=== PATIENT | female | born 1950 | race American Indian/Alaskan Native ===

== ENCOUNTER 2017-04-06 20:50 | Observation (INO) | payer OTHER ==
[2017-04-06 20:55] VITALS: BMI 28.3
--- NOTE | 2017-04-06 21:11 | PDOC ---
History of Present Illness - General Chief Complaint: Shortness of Breath Stated Complaint: SHORTNESS OF BREATHE Time Seen by Provider: 04/06/17 20:57 - History of Present Illness Initial Comments: 04/06/17 21:25 The patient is a 66 year old female with a history of HLD who presents for evaluation of SOB. The patient as accompanied by her son who assists in providing the history. The patient reports cleaning with bleach and ammonia as well as dusting today and began feeling more SOB over the next few hours prompting her presentation to the ED for evaluation. The son reports that the patient experiences these symptoms every time she does a big clean like today, however her symptoms were worse than normal today. She denies chest pain, fevers, chills, abdominal pain, or changes with urination or bowel movements. Past History - Past Medical History Allergies/Adverse Reactions: Allergies Allergy/AdvReac Type Severity Reaction Status Date / Time No Known Allergies Allergy Verified 04/06/17 20:55 Home Medications: Ambulatory Orders Ezetimibe [Zetia] 10 mg PO DAILY 04/06/17 Simvastatin 20 mg PO DAILY 04/06/17 Hypercholesterolemia: Yes - Suicide/Smoking/Psychosocial Hx Smoking History: Never smoked Review of Systems - Review of Systems Comments:: 04/06/17 21:28 Constitutional: No fevers, chills, fatigue, malaise HEENT: No Rhinorrhea, nasal congestion, visual changes Cardiovascular: No chest pain, syncope, palpitations, lightheadedness Respiratory: SOB. No Cough, Hemoptysis, Gastrointestinal: No Abdominal pain, Nausea, Vomiting, Constipation, Diarrhea, Melena Genitourinary: No Dysuria, Frequency, Urgency, Hesitancy, Hematuria, Flank pain Musculoskeletal: No Myalgia, arthralgia Skin: No rashes, bruising, pallor Neurologic: No Headache, Dizziness, Numbness, Weakness, or Tingling *Physical Exam - Vital Signs Last Vital Signs Temp Pulse Resp BP Pulse Ox 97 F L 114 H 22 184/102 93 L 04/06/17 20:51 04/06/17 20:51 04/06/17 20:51 04/06/17 20:51 04/06/17 20:51 - Physical Exam Comments: 04/06/17 21:29 General Appearance: Nourished. No Apparent Distress HEENT: EOMI, RONNY. No Pharyngeal Erythema, Tonsillar Exudate, Tonsillar Erythema Neck: No Cervical Lymphadenopathy Respiratory/Chest: Lungs Clear, Normal Breath Sounds. Poor air movement. Very mild end expiratory wheezing. No Crackles, Rales, Rhonchi, Cardiovascular: Regular Rhythm, Regular Rate. No Murmur, Gallops, Rubs Gastrointestinal/Abdominal: Normal Bowel Sounds, Soft. No Guarding, Rebound, Tenderness Musculoskeletal: No CVA Tenderness Extremity: Normal Capillary Refill Integumentary: Normal Color, Dry, Warm Neurologic: Fully Oriented, Alert, Normal Mood/Affect, Normal Response, ED Treatment Course - LABORATORY CBC & Chemistry Diagram: 04/06/17 21:30 04/06/17 21:30 Medical Decision Making - Medical Decision Making 04/06/17 21:31 The patient is a 66 year old female with a history of HLD who presents for evaluation of SOB. Differential includes but is not limited to: Reactive airway disease, pneumonia, ACS, infectious, metabolic derangement. Given the patient's history of irritant exposure and poor air movement, it is likely her symptoms are due to reactive airway disease. However, we will obtain a chest plain film to evaluate for pneumonia as well. We will obtain a cbc, cmp, troponin to evaluate for other infectious metabolic etiologies as well as an ekg. We will treat her with duoneb and solumedrol here in the Ed and continue to monitor and reassess. 04/07/17 00:08 cbc, cmp, ekg, troponin are unremarkable. Chest plain film is unremarkable as preliminarily read by ED physician pending official read. The patient reports clinical improvement in her symptoms, however, she continues to desaturate to 90 % on RA and continues to saturate at 97% on 2L. We believe that she requires observation admission given her continued desaturations. We discussed the case with Dr. Siegel who agreed to accept the patient for observation admission. *DC/Admit/Observation/Transfer Diagnosis at time of Disposition: Shortness of breath - Discharge Dispostion Condition at time of disposition: Guarded Admit: Yes
[2017-04-06] MEDS ORDERED: ALBUTEROL SO4 2.5/IPRATROPIUM 0.5 INH SOL 3 ML VIAL.NEB. NEB ONE ×2 (21:14→21:21)
[2017-04-06] MEDS ORDERED: methylPREDNISolone NA SUCC 125 MG/2 ML VIAL IVPUSH ONE (21:20)
[2017-04-06] MEDS ORDERED: methylPREDNISolone NA SUCC 125 MG/2 ML VIAL ONE (21:21)
--- NOTE | 2017-04-06 21:27 | PDOC ---
Attending Attestation - Resident Resident Name: Sanjay Santos - HPI HPI: 04/06/17 21:24 Pt was exposed to dust as others were cleaning her attic, and chemicals including bleach and ammonia as metal inspector were cleaning downstairs in her home. Pt now comes with low [id number] and difficulty breathing. She has decreased breath sounds and she appears to be in distress. Son states that she often gets SOB with annual home cleaning, but he has never seen her this bad. - Physicial Exam PE: 04/06/17 21:25 Decreased air movements in lungs bilaterally; squeaking breath sounds bilaterally R>> left afebrile BP elevated O12sat decreased however 98% on 2L NC No abd pain and no chest pain no flank pain and pt is A+Ox3 neurologically intact. I agree with resident exam - Medical Decision Making 04/07/17 04:00 Pt has a chemical pneumonitis likely due to ammonia and bleach causing toxic chlorine gas and pt has 93%pulsox and resp distess on Room air. She will be admitted to Dr. Conde for observation and consult with pulmonology as needed.
[2017-04-06 21:38] LABS: BASOPHIL 0.5 % (0-2.0); EOSINOPHIL 1.9 % (0-4.5); MCH 27.4 pg (25.7-33.7); MCHC 33.4 g/dl (32.0-36.0); MEAN CELL VOLUME 82.1 fl (80-96); MEAN PLT VOLUME 8.4 fl (7.5-11.1); NEUTROPHILS 73.3 % (42.8-82.8); PLATELET COUNT 246 K/MM3 (134-434); RDW 13.8 % (11.6-15.6); WHITE BLOOD COUNT 9.3 K/mm3 (4.0-10.0)
[2017-04-06 22:06] LABS: ALBUMIN 4.3 g/dl (3.4-5.0); ANION GAP 4 (8-16); BILIRUBIN,TOTAL 0.3 mg/dL (0.2-1.0); CALCIUM 9.9 mg/dL (8.5-10.1); CO2 32 mmol/L (21-32); CREATININE 0.6 mg/dL (0.55-1.02); GLUCOSE,RANDOM 127 mg/dL (74-106); SGOT/AST 15 U/L (15-37); SGPT/ALT 30 U/L (12-78); TOT PROT 9.2 g/dl (6.4-8.2)
[2017-04-06 22:08] LABS: ALK PHOS 76 U/L (45-117); CPK 115 IU/L (26-192); TROPONIN I < 0.02 ng/ml (0.00-0.05)
[2017-04-07] MEDS ORDERED: ACETAMINOPHEN 325 MG TABLET (FP) PO PRN (06:48)
--- NOTE | 2017-04-07 09:47 | PN ---
Progress Note, Physician Chief Complaint: Pt lying in bed.No sob O2 saturation was 97% on Room air Pt feels better D/c home today - Current Medication List Current Medications: Active Medications Acetaminophen (Tylenol -) 650 mg PO Q6H PRN PRN Reason: FEVER OR PAIN Last Admin: 04/07/17 08:50 Dose: 650 mg Atorvastatin Calcium (Lipitor -) 10 mg PO HS JAJA Ezetimibe (Zetia -) 10 mg PO DAILY JAJA Prednisone (Deltasone -) 30 mg PO DAILY JAJA PRN Reason: Taper Stop: 04/14/17 09:59 - Objective Vital Signs: Vital Signs Temperature 97.7 F 04/07/17 08:23 Pulse Rate 83 04/07/17 08:23 Respiratory Rate 19 04/07/17 08:23 Blood Pressure 128/78 04/07/17 08:23 O2 Sat by Pulse Oximetry (%) 96 04/07/17 03:32 Constitutional: Yes: No Distress Eyes: Yes: Conjunctiva Clear HENT: Yes: Atraumatic Neck: Yes: Supple, Trachea Midline Cardiovascular: Yes: Regular Rate and Rhythm Respiratory: Yes: Regular, CTA Bilaterally Gastrointestinal: Yes: WNL Musculoskeletal: Yes: WNL Extremities: Yes: WNL Edema: No Peripheral Pulses WNL: Yes Neurological: Yes: WNL, Alert, Oriented ...Motor Strength: WNL Psychiatric: Yes: WNL, Alert Labs: Laboratory Results - last 24 hr 04/06/17 04/06/17 21:30 21:30 WBC 9.3 RBC 5.58 H Hgb 15.3 Hct 45.8 H MCV 82.1 MCH 27.4 MCHC 33.4 RDW 13.8 Plt Count 246 MPV 8.4 Neutrophils % 73.3 Lymphocytes % 19.3 Monocytes % 5.0 Eosinophils % 1.9 Basophils % 0.5 Sodium 139 Potassium 4.3 Chloride 103 Carbon Dioxide 32 Anion Gap 4 L BUN 9 Creatinine 0.6 Creat Clearance w eGFR > 60 Random Glucose 127 H Calcium 9.9 Total Bilirubin 0.3 AST 15 ALT 30 Alkaline Phosphatase 76 Creatine Kinase 115 Troponin I < 0.02 Total Protein 9.2 H Albumin 4.3 - ....Imaging Chest X-ray: Report Reviewed Assessment/Plan SOB s/p exposure to clening solutions,bleach and Dust Hypercholestrolemia PLAN D/c home ,continue prednisone tapering dose for $ more days ventolin HFA Continue home meds F/u with Pmd in 1 wk
--- NOTE | 2017-04-07 09:58 | DS ---
Physical Examination Vital Signs: Vital Signs Temperature 97.7 F 04/07/17 08:23 Pulse Rate 83 04/07/17 08:23 Respiratory Rate 19 04/07/17 08:23 Blood Pressure 128/78 04/07/17 08:23 O2 Sat by Pulse Oximetry (%) 96 04/07/17 03:32 Discharge Summary Reason For Visit: SHORTNESS OF BREATHE Current Active Problems Shortness of breath (Acute) Hypercholestrolemia Hospital Course: Pt with h/o hypercholestrolemia admitted with SOB after exposure to cleaning materials bleach and dust Saturation was 92% , Labs ,ekg and Xray chest were NL Pt was treated with Oxygen,Duoneb and Solumedrol Pt improved ,Saturation Was NL Pt kept for Observation Pt was stable on the floor D/c home on Ventolin,Po prednisone tapering dose in a stable condition Condition: Good - Instructions Disposition: HOME - Home Medications Comprehensive Discharge Medication List: Ambulatory Orders Ezetimibe [Zetia] 10 mg PO DAILY 04/06/17 Simvastatin 20 mg PO DAILY 04/06/17 Albuterol Sulfate Inhaler - [Ventolin Hfa Inhaler -] 2 inh PO Q6H #1 inh Prednisone [Deltasone -] 30 mg PO DAILY #2 tablet 04/07/17
[2017-04-07] MEDS ORDERED: EZETIMIBE 10 MG TABLET (FP) PO SCH (10:00)
[2017-04-07] MEDS ORDERED: predniSONE 10 MG TABLET (UD) PO SCH (10:00)
[2017-04-07 10:08] LABS: URINE APPEARANCE SLCLOUDY; URINE BILIRUBIN NEGATIVE (NEGATIVE); URINE BLOOD NEGATIVE (NEGATIVE); URINE COLOR YELLOW; URINE GLUCOSE (UA) 2+ (NEGATIVE); URINE KETONE NEGATIVE (NEGATIVE); URINE NITRITE NEGATIVE (NEGATIVE); URINE UROBILINOGEN NEGATIVE mg/dL (0.2-1.0)
[2017-04-07 10:12] LABS: URINE PROTEIN 1+ (NEGATIVE)
[2017-04-07 10:13] LABS: URINE MUCUS RARE; URINE RBC 1 /hpf (0-3); URINE WBC <1 /hpf (3-5)
--- NOTE | 2017-04-07 10:52 | EKG ---
Test Reason : Blood Pressure : / mmHG Vent. Rate : 100 BPM Atrial Rate : 100 BPM P-R Int : 154 ms QRS Dur : 068 ms QT Int : 368 ms P-R-T Axes : 074 -12 032 degrees QTc Int : 474 ms NORMAL SINUS RHYTHM LOW VOLTAGE QRS POOR R WAVE PROGRESSION ABNORMAL ECG NO PREVIOUS ECGS AVAILABLE BASELINE ARTIFACT Confirmed by RICHARD PARRISH, TESFAYE ([id number]) on 04/07/2017 10:51:54 AM Referred By: Confirmed By:TESFAYE RAMOS MD
--- NOTE | 2017-04-07 12:32 | HP ---
DATE OF ADMISSION: 04/07/2017 Patient is a 66-year-old female with history of hyperlipidemia who came to the emergency for evaluation of shortness of breath. As per the patient, she was cleaning the house with bleach and ammonia as well as the stink and began feeling more shortness of breath over the next few hours, so came to the emergency room for evaluation. No chest pain, no palpitations, no fever. As per her son, the patient experiences these symptoms every time when she cleans the house; however, the symptoms were worse than normal today; that is the reason she came for evaluation. No known drug allergies. MEDICATIONS: The patient is on Zetia and simvastatin. PERSONAL HISTORY: Nothing significant. Nonsmoker. No history of alcohol, no drugs. REVIEW OF SYSTEMS: Constitutional: No fever, no chills, no fatigue. Head/Neck: No rhinorrhea, nasal congestion. No visual changes. Cardiovascular: No chest pain, no syncope, no palpitations, no lightheadedness. Respiratory: Shortness of breath. No cough, no hemoptysis. Gastrointestinal: Nothing significant. Genitourinary: Nothing significant. Musculoskeletal: Nothing significant. Neurologic: Nothing significant. Mild headache complaints. PHYSICAL EXAMINATION: Vital Signs: In the emergency room, temperature 97, pulse rate 114, respirations 22, blood pressure 194/102, pulse oximetry 93. Head/Neck: Normal. Neck supple. No JVD. Chest: Normal breath sounds, poor air entry with mild respiratory wheezing. No crackles, no rales, no rhonchi. Cardiovascular: First and 2nd sounds are normal. normal. Musculoskeletal: No CVA tenderness. Extremities: Normal. Neurologic: No apparent motor or sensory deficits. Reflexes normal. LABORATORIES: CBC normal. CMP normal. Chest x-ray: No infiltrate. Cardiac enzymes negative. EKG was normal. Patient was given Solu-Medrol and DuoNeb in the emergency room. Before that, the oxygen saturation was 90% on room air and, on 2 L of oxygen, it went up to 97%. Patient admitted to the floor with admitting diagnoses of shortness of breath, status post exposure to bleach; desaturation. PLAN: Bronchodilators, steroidal to be continued. Will monitor the saturation and breathing. Patient was stable on the floor. REYNOLD SUAREZ M.D. [id number]
[2017-04-07 14:59] VITALS: BP 153/69; PULSE 96; TEMP 97.9
[2017-04-07 17:23] LABS: URINE LEUK ESTERASE Negative (NEGATIVE)
[2017-04-07] MEDS ORDERED: ATORVASTATIN CA 10 MG TABLET (FP) PO SCH (22:00)
== END 2017-04-07 16:26 | disposition home or self-care (01) ==
LOC: JER 20:50 → JERBED 04-07 00:12 → J5S 04-07 03:00
PROVIDERS: ADMIT Family Medicine; ATTEND Family Medicine
PROC: 3E033NZ Introduction of Analgesics, Hypnotics, Sedatives into Peripheral Vein, Percutaneous Approach (ICD-10-PCS; principal; 2017-04-07)
PROC: 3E0F7GC Introduction of Other Therapeutic Substance into Respiratory Tract, Via Natural or Artificial Opening (ICD-10-PCS; 2017-04-07)
DX: R06.02 Shortness of breath (principal); E78.5 Hyperlipidemia, unspecified; Z77.098 Contact with and (suspected) exposure to other hazardous, chiefly nonmedicinal, chemicals
CPT/HCPCS: 36415; 71020-TC; 80053; 81003; 81015; 82550; 84484; 85025; 87086; 93005; 93010; 94640; 96374; 99282-25; G0378

== ENCOUNTER 2020-11-24 03:43 | Inpatient (IN) | payer OTHER ==
[2020-11-24 05:04] LABS: BASO % 0.5 % (0-2.0); EOS % 2.4 % (0-4.5); HEMATOCRIT 38.1 % (32.4-45.2); HEMOGLOBIN 12.9 GM/dL (10.7-15.3); LYMPH % 7.8 % (8-40); MCH 28.4 pg (25.7-33.7); MCHC 33.9 g/dl (32.0-36.0); MEAN CELL VOLUME 83.6 fl (80-96); MEAN PLT VOLUME 7.9 fl (7.5-11.1); MONO % 9.1 % (3.8-10.2); NEUT % 80.2 % (42.8-82.8); PLATELET COUNT 356 K/MM3 (134-434); RBC 4.56 M/mm3 (3.60-5.2); RDW 13.4 % (11.6-15.6)
[2020-11-24] MEDS ORDERED: SODIUM CHLORIDE 0.9% 500 ML INFUS.BAG IV ONE ×2 (05:06→09:40)
[2020-11-24] MEDS ORDERED: ACETAMINOPHEN 1000 MG/100 ML VIAL (NON FORMULARY) IVPB ONE (05:06)
[2020-11-24 05:10] LABS: VENOUS BASE EXCESS -0.3 mmol/L (-2-2); VENOUS O2 SATURATION 72.4 % (70-80); VENOUS PCO2 40.1 mmHg (38-52); VENOUS PH 7.401 (7.310-7.410)
[2020-11-24 05:11] LABS: INR 1.16 (0.83-1.09); PROTHROMBIN TIME (PATIENT) 14.2 SEC (9.7-13.0)
[2020-11-24 05:13] LABS: ACTIVATED PTT 35.4 SECONDS (25.2-36.5)
[2020-11-24] MEDS ORDERED: ACETAMINOPHEN INJECTION 100 ML IVPB ONE (05:17)
[2020-11-24 05:22] LABS: CHLORIDE 101 mmol/L (98-107); SODIUM 134 mmol/L (136-145)
[2020-11-24 05:24] LABS: ANION GAP 7 MMOL/L (8-16); BLOOD UREA NITROGEN 14.5 mg/dL (7-18); CALCIUM 9.1 mg/dL (8.5-10.1); CO2 26 mmol/L (21-32); GLUCOSE,RANDOM 174 mg/dL (74-106)
[2020-11-24 05:25] LABS: ALBUMIN 3.2 g/dl (3.4-5.0)
[2020-11-24 05:27] LABS: BILIRUBIN,DIRECT 0.3 mg/dL (0.0-0.2); CREATININE 0.6 mg/dL (0.55-1.3); SGOT/AST 62 U/L (15-37); SGPT/ALT 150 U/L (13-61)
[2020-11-24 05:29] LABS: BILIRUBIN,TOTAL 0.6 mg/dL (0.2-1)
[2020-11-24 05:30] LABS: ALK PHOS 185 U/L (45-117)
[2020-11-24 05:31] LABS: LDH 160 U/L (84-246)
[2020-11-24 07:43] LABS: N-TERMINAL BNP 69.2 pg/ml (5-125)
[2020-11-24] MEDS ORDERED: PIPERACILLIN/TAZOB 4.5 GM 4.5 GM in DEXTROSE 5%-WATER 100 ML IVPB ONE (07:47)
[2020-11-24 08:07] LABS: PH,URINE 6.5 (5.0-8.0); URINE APPEARANCE CLEAR; URINE BILIRUBIN NEGATIVE (NEGATIVE); URINE COLOR YELLOW; URINE GLUCOSE (UA) NEGATIVE (NEGATIVE); URINE KETONE NEGATIVE (NEGATIVE); URINE LEUK ESTERASE NEGATIVE (NEGATIVE); URINE NITRITE NEGATIVE (NEGATIVE); URINE PROTEIN NEGATIVE (NEGATIVE); URINE UROBILINOGEN 0.2 mg/dL (0.2-1.0)
[2020-11-24] MEDS ORDERED: PIPERACILLIN/TAZOB 4.5 GM 4.5 GM/100 ML BAG IVPB ONE (08:08)
[2020-11-24] MEDS ORDERED: IBUPROFEN 600 MG TABLET (FP) PO PRN (09:32)
[2020-11-24] MEDS ORDERED: SODIUM CHLORIDE 1,000 ML IV SCH (09:45)
[2020-11-24] MEDS: LIDOCAINE 5% TOPICAL PATCH TP SCH (11:27)
[2020-11-24] MEDS: ENOXAPARIN NA (PORCINE) 40 MG/0.4 ML DISP.SYRIN SQ SCH (11:34)
[2020-11-24] MEDS: ACETAMINOPHEN 1000 MG/100 ML VIAL (NON FORMULARY) IVPB PRN ×2 (13:14→20:25)
[2020-11-24] MEDS: AZITHROMYCIN IVPB 250 MG in DEXTROSE 5%-WATER - 250 ML IVPB SCH (14:02)
[2020-11-24] MEDS ORDERED: cefTRIAXone SODIUM 1 GM VIAL ONE (14:38)
[2020-11-24] MEDS ORDERED: DEXTROSE 5%-WATER - 50 ML IVPB ONE (14:38)
[2020-11-24] MEDS: ALBUTEROL SO4 HFA INHALER IH PRN ×2 (14:51→18:22)
[2020-11-24 15:17] VITALS: BMI 27.3
[2020-11-24] MEDS: CEFTRIAXONE 1 GM in DEXTROSE 5%-WATER - 50 ML IVPB SCH (17:01)
[2020-11-24] MEDS: LIDOCAINE PATCH REMOVAL MC SCH (21:17)
[2020-11-25] MEDS: ALBUTEROL SO4 HFA INHALER IH PRN ×2 (01:15→06:01)
[2020-11-25] MEDS: ACETAMINOPHEN 1000 MG/100 ML VIAL (NON FORMULARY) IVPB PRN ×2 (02:17→08:40)
[2020-11-25 08:35] LABS: HEMATOCRIT 37.6 % (32.4-45.2); HEMOGLOBIN 12.4 GM/dL (10.7-15.3); MCH 27.6 pg (25.7-33.7); MCHC 32.9 g/dl (32.0-36.0); MEAN PLT VOLUME 7.7 fl (7.5-11.1); PLATELET COUNT 359 K/MM3 (134-434); RBC 4.48 M/mm3 (3.60-5.2); RDW 13.6 % (11.6-15.6); WHITE BLOOD COUNT 17.1 K/mm3 (4.0-10.0)
[2020-11-25 08:59] LABS: CALCIUM 9.2 mg/dL (8.5-10.1)
[2020-11-25 09:00] LABS: MAGNESIUM 1.9 mg/dL (1.8-2.4)
[2020-11-25 09:03] LABS: CREATININE 0.5 mg/dL (0.55-1.3); PHOSPHOROUS 3.9 mg/dL (2.5-4.9)
[2020-11-25 09:04] LABS: BILIRUBIN,TOTAL 1.3 mg/dL (0.2-1); TOT PROT 6.7 g/dl (6.4-8.2)
[2020-11-25 09:09] LABS: ALBUMIN 2.4 g/dl (3.4-5.0)
[2020-11-25] MEDS ORDERED: PT OWN MED DRAWER 7, Y5N ONE (10:45)
[2020-11-25] MEDS ORDERED: DEXTROSE 5%-WATER - 50 ML IVPB ONE (10:46)
[2020-11-25] MEDS ORDERED: cefTRIAXone SODIUM 1 GM VIAL ONE (10:46)
[2020-11-25] MEDS: ENOXAPARIN NA (PORCINE) 40 MG/0.4 ML DISP.SYRIN SQ SCH (11:23)
[2020-11-25] MEDS: CEFTRIAXONE 1 GM in DEXTROSE 5%-WATER - 50 ML IVPB SCH (11:24)
[2020-11-25] MEDS ORDERED: SODIUM CHLORIDE 1,000 ML IV SCH (11:30)
[2020-11-25] MEDS ORDERED: PANTOPRAZOLE SODIUM 40 MG in SODIUM CHLORIDE 100 ML IVPB SCH (11:30)
[2020-11-25] MEDS: AZITHROMYCIN IVPB 250 MG in DEXTROSE 5%-WATER - 250 ML IVPB SCH (11:35)
[2020-11-25] MEDS: ONDANSETRON 4 MG/2 ML VIAL IVPUSH PRN ×2 (13:05→18:40)
[2020-11-25] MEDS: PANTOPRAZOLE SODIUM 40 MG VIAL IVPUSH SCH (13:09)
[2020-11-25] MEDS: LIDOCAINE 5% TOPICAL PATCH TP SCH (17:40)
[2020-11-25] MEDS: traMADol HCL 50 MG TABLET PO PRN (20:02)
[2020-11-25] MEDS: LIDOCAINE PATCH REMOVAL MC SCH (21:39)
[2020-11-26] MEDS: traMADol HCL 50 MG TABLET PO PRN ×4 (02:12→21:22)
[2020-11-26] MEDS ORDERED: DEXTROSE 5%-WATER 100 ML IVPB ONE (08:46)
[2020-11-26] MEDS: LIDOCAINE 5% TOPICAL PATCH TP SCH (09:14)
[2020-11-26] MEDS: PANTOPRAZOLE SODIUM 40 MG VIAL IVPUSH SCH (09:14)
[2020-11-26] MEDS: ENOXAPARIN NA (PORCINE) 40 MG/0.4 ML DISP.SYRIN SQ SCH (09:17)
[2020-11-26 09:57] LABS: BASO % 0.3 % (0-2.0); EOS % 0.7 % (0-4.5); HEMATOCRIT 33.5 % (32.4-45.2); HEMOGLOBIN 10.8 GM/dL (10.7-15.3); LYMPH % 5.1 % (8-40); MCH 27.5 pg (25.7-33.7); MCHC 32.3 g/dl (32.0-36.0); MEAN PLT VOLUME 8.3 fl (7.5-11.1); MONO % 5.6 % (3.8-10.2); NEUT % 88.3 % (42.8-82.8); PLATELET COUNT 454 K/MM3 (134-434); RBC 3.94 M/mm3 (3.60-5.2); RDW 13.3 % (11.6-15.6)
[2020-11-26] MEDS ORDERED: CEFTRIAXONE 2 GM in DEXTROSE 5%-WATER 100 ML IVPB SCH (10:00)
[2020-11-26] MEDS: ALBUTEROL SO4 HFA INHALER IH PRN ×3 (10:00→21:00)
[2020-11-26 11:00] LABS: WHITE BLOOD COUNT 31.7 K/mm3 (4.0-10.0)
[2020-11-26 11:25] LABS: BASO % 0.3 % (0-2.0); EOS % 0.6 % (0-4.5); HEMATOCRIT 36.2 % (32.4-45.2); LYMPH % 6.2 % (8-40); MCH 27.7 pg (25.7-33.7); MCHC 33.1 g/dl (32.0-36.0); MEAN CELL VOLUME 83.7 fl (80-96); MEAN PLT VOLUME 7.5 fl (7.5-11.1); MONO % 6.9 % (3.8-10.2); PLATELET COUNT 379 K/MM3 (134-434); RBC 4.32 M/mm3 (3.60-5.2); RDW 13.8 % (11.6-15.6); WHITE BLOOD COUNT 21.2 K/mm3 (4.0-10.0)
[2020-11-26 11:45] LABS: ALBUMIN 2.3 g/dl (3.4-5.0)
[2020-11-26 11:46] LABS: MAGNESIUM 2.1 mg/dL (1.8-2.4)
[2020-11-26 11:49] LABS: CREATININE 0.6 mg/dL (0.55-1.3)
[2020-11-26 11:50] LABS: BILIRUBIN,TOTAL 0.4 mg/dL (0.2-1); TOT PROT 6.8 g/dl (6.4-8.2)
[2020-11-26 12:46] LABS: ANISOCYTOSIS 0; MACROCYTOSIS 0; PLATELET ESTIMATE NORMAL
[2020-11-26 13:18] LABS: ANISOCYTOSIS 0; MACROCYTOSIS 0; PLATELET ESTIMATE NORMAL
[2020-11-26 14:08] LABS: HEP B CORE AB, TOT Negative (Negative)
[2020-11-26] MEDS: VANCOMYCIN 1 GRAM (PRE-DOCKED) 1,000 MG/250 ML BAG IVPB SCH (15:40)
[2020-11-26] MEDS ORDERED: PIPERACILLIN/TAZOBACTAM 3.375 GM VIAL IVPB ONE (16:42)
[2020-11-26] MEDS ORDERED: DEXTROSE 5%-WATER - 50 ML IVPB ONE (16:42)
[2020-11-26] MEDS: PIPERACILLIN/TAZOB 3.375 GM 3.375 GM in DEXTROSE 5%-WATER - 50 ML IVPB SCH (18:13)
[2020-11-26] MEDS: LIDOCAINE PATCH REMOVAL MC SCH (21:22)
[2020-11-27] MEDS: ALBUTEROL SO4 HFA INHALER IH PRN ×2 (00:57→08:12)
[2020-11-27] MEDS ORDERED: DEXTROSE 5%-WATER - 50 ML IVPB ONE ×3 (01:10→17:01)
[2020-11-27] MEDS ORDERED: PIPERACILLIN/TAZOBACTAM 3.375 GM VIAL IVPB ONE ×3 (01:10→17:01)
[2020-11-27] MEDS: PIPERACILLIN/TAZOB 3.375 GM 3.375 GM in DEXTROSE 5%-WATER - 50 ML IVPB SCH ×3 (02:02→18:02)
[2020-11-27] MEDS: VANCOMYCIN 1 GRAM (PRE-DOCKED) 1,000 MG/250 ML BAG IVPB SCH ×2 (03:09→15:41)
[2020-11-27] MEDS: traMADol HCL 50 MG TABLET PO PRN ×4 (03:09→21:53)
[2020-11-27 09:09] LABS: BASO % 0.3 % (0-2.0); EOS % 0.9 % (0-4.5); HEMATOCRIT 35.6 % (32.4-45.2); HEMOGLOBIN 11.7 GM/dL (10.7-15.3); MCH 27.3 pg (25.7-33.7); MCHC 32.9 g/dl (32.0-36.0); MEAN CELL VOLUME 83.2 fl (80-96); MEAN PLT VOLUME 7.1 fl (7.5-11.1); MONO % 8.6 % (3.8-10.2); NEUT % 78.2 % (42.8-82.8); PLATELET COUNT 467 K/MM3 (134-434); RBC 4.28 M/mm3 (3.60-5.2); RDW 13.8 % (11.6-15.6); WHITE BLOOD COUNT 16.1 K/mm3 (4.0-10.0)
[2020-11-27 09:28] LABS: ALBUMIN 2.2 g/dl (3.4-5.0); CALCIUM 9.1 mg/dL (8.5-10.1)
[2020-11-27 09:29] LABS: BLOOD UREA NITROGEN 11.4 mg/dL (7-18); MAGNESIUM 2.1 mg/dL (1.8-2.4)
[2020-11-27 09:30] LABS: INR 1.18 (0.83-1.09); PROTHROMBIN TIME (PATIENT) 14.4 SEC (9.7-13.0)
[2020-11-27 09:32] LABS: CREATININE 0.5 mg/dL (0.55-1.3)
[2020-11-27] MEDS: PANTOPRAZOLE SODIUM 40 MG VIAL IVPUSH SCH (09:32)
[2020-11-27 09:33] LABS: BILIRUBIN,TOTAL 0.6 mg/dL (0.2-1); TOT PROT 6.8 g/dl (6.4-8.2)
[2020-11-27] MEDS: LIDOCAINE 5% TOPICAL PATCH TP SCH (09:33)
[2020-11-27] MEDS ORDERED: METOPROLOL TARTRATE 5 MG/5 ML VIAL IVPUSH PRN (11:22)
[2020-11-27] MEDS ORDERED: ALBUTEROL SO4 HFA INHALER IH PRN (12:42)
[2020-11-27] MEDS ORDERED: ONDANSETRON 4 MG/2 ML VIAL IVPUSH PRN (12:42)
[2020-11-27] MEDS: LIDOCAINE PATCH REMOVAL MC SCH ×2 (21:12)
[2020-11-28] MEDS ORDERED: PIPERACILLIN/TAZOBACTAM 3.375 GM VIAL IVPB ONE ×3 (02:17→17:48)
[2020-11-28] MEDS ORDERED: DEXTROSE 5%-WATER - 50 ML IVPB ONE ×3 (02:17→17:48)
[2020-11-28] MEDS: PIPERACILLIN/TAZOB 3.375 GM 3.375 GM in DEXTROSE 5%-WATER - 50 ML IVPB SCH ×4 (02:29→17:57)
[2020-11-28] MEDS: VANCOMYCIN 1 GRAM (PRE-DOCKED) 1,000 MG/250 ML BAG IVPB SCH ×2 (02:39→15:24)
[2020-11-28] MEDS: traMADol HCL 50 MG TABLET PO PRN ×2 (06:17→19:37)
[2020-11-28 08:30] LABS: BASO % 0.4 % (0-2.0); EOS % 1.8 % (0-4.5); HEMATOCRIT 33.8 % (32.4-45.2); HEMOGLOBIN 10.9 GM/dL (10.7-15.3); LYMPH % 14.5 % (8-40); MCHC 32.3 g/dl (32.0-36.0); MEAN CELL VOLUME 83.6 fl (80-96); MEAN PLT VOLUME 7.2 fl (7.5-11.1); MONO % 10.3 % (3.8-10.2); PLATELET COUNT 425 K/MM3 (134-434); RBC 4.04 M/mm3 (3.60-5.2); RDW 13.2 % (11.6-15.6); WHITE BLOOD COUNT 11.3 K/mm3 (4.0-10.0)
[2020-11-28 08:31] LABS: INR 1.3 (0.83-1.09); PROTHROMBIN TIME (PATIENT) 15.6 SEC (9.7-13.0)
[2020-11-28 08:51] LABS: CALCIUM 8.7 mg/dL (8.5-10.1)
[2020-11-28 08:52] LABS: ALBUMIN 1.9 g/dl (3.4-5.0); BLOOD UREA NITROGEN 8.4 mg/dL (7-18); MAGNESIUM 2.2 mg/dL (1.8-2.4)
[2020-11-28 08:55] LABS: CREATININE 0.5 mg/dL (0.55-1.3)
[2020-11-28 08:56] LABS: BILIRUBIN,TOTAL 0.5 mg/dL (0.2-1); TOT PROT 6.1 g/dl (6.4-8.2)
[2020-11-28] MEDS: LIDOCAINE 5% TOPICAL PATCH TP SCH (10:37)
[2020-11-28] MEDS: PANTOPRAZOLE SODIUM 40 MG VIAL IVPUSH SCH ×2 (10:37→11:03)
[2020-11-28] MEDS ORDERED: ENOXAPARIN NA (PORCINE) 80 MG/0.8 ML DISP.SYRIN SQ SCH (17:15)
[2020-11-28] MEDS: ENOXAPARIN NA (PORCINE) 80 MG/0.8 ML DISP.SYRIN SQ SCH (21:45)
[2020-11-28] MEDS: LIDOCAINE PATCH REMOVAL MC SCH ×2 (21:48)
[2020-11-29] MEDS ORDERED: PIPERACILLIN/TAZOBACTAM 3.375 GM VIAL IVPB ONE ×3 (01:27→16:28)
[2020-11-29] MEDS ORDERED: DEXTROSE 5%-WATER - 50 ML IVPB ONE ×3 (01:28→16:28)
[2020-11-29] MEDS: PIPERACILLIN/TAZOB 3.375 GM 3.375 GM in DEXTROSE 5%-WATER - 50 ML IVPB SCH ×3 (01:42→17:14)
[2020-11-29] MEDS: traMADol HCL 50 MG TABLET PO PRN ×3 (02:16→22:15)
[2020-11-29] MEDS: VANCOMYCIN 1 GRAM (PRE-DOCKED) 1,000 MG/250 ML BAG IVPB SCH ×2 (02:21→14:17)
[2020-11-29 09:17] LABS: BF WBC & OTHER NUCLEATED CELLS 2038 /mm3
[2020-11-29] MEDS: ENOXAPARIN NA (PORCINE) 80 MG/0.8 ML DISP.SYRIN SQ SCH ×2 (09:45→22:14)
[2020-11-29] MEDS: LIDOCAINE 5% TOPICAL PATCH TP SCH (09:45)
[2020-11-29] MEDS: PANTOPRAZOLE SODIUM 40 MG VIAL IVPUSH SCH (09:46)
[2020-11-29 10:13] LABS: BODY FLUID MACROPHAGES 6 %; BODY FLUID MONOCYTE 8 %
[2020-11-29 11:23] LABS: BASO % 0.5 % (0-2.0); EOS % 1.5 % (0-4.5); HEMATOCRIT 36.4 % (32.4-45.2); HEMOGLOBIN 11.8 GM/dL (10.7-15.3); LYMPH % 13.1 % (8-40); MCHC 32.5 g/dl (32.0-36.0); MEAN CELL VOLUME 83.3 fl (80-96); MEAN PLT VOLUME 7.3 fl (7.5-11.1); MONO % 8.3 % (3.8-10.2); NEUT % 76.6 % (42.8-82.8); PLATELET COUNT 464 10^3/uL (134-434); RBC 4.37 M/mm3 (3.60-5.2); RDW 13.7 % (11.6-15.6); WHITE BLOOD COUNT 9.3 K/mm3 (4.0-10.0)
[2020-11-29 11:43] LABS: ALBUMIN 2.1 g/dl (3.4-5.0); MAGNESIUM 2.4 mg/dL (1.8-2.4)
[2020-11-29 11:46] LABS: CREATININE 0.6 mg/dL (0.55-1.3)
[2020-11-29 11:47] LABS: BILIRUBIN,TOTAL 0.5 mg/dL (0.2-1)
[2020-11-29 11:48] LABS: TOT PROT 6.9 g/dl (6.4-8.2)
[2020-11-29 12:38] LABS: ANISOCYTOSIS 0; HELMET CELLS 0; HOWELL-JOLLY BODIES 0; MACROCYTOSIS 0; OVALOCYTE 0; PLATELET ESTIMATE NORMAL; ROULEAU 0; SICKELED CELLS 0; TARGET CELLS 0; TEAR DROP CELLS 0; TOXIC GRANULATION 0
[2020-11-29] MEDS: LIDOCAINE PATCH REMOVAL MC SCH ×2 (22:14→22:15)
[2020-11-30] MEDS ORDERED: PIPERACILLIN/TAZOBACTAM 3.375 GM VIAL IVPB ONE ×3 (03:19→16:56)
[2020-11-30] MEDS ORDERED: DEXTROSE 5%-WATER - 50 ML IVPB ONE ×3 (03:21→16:56)
[2020-11-30] MEDS: VANCOMYCIN 1 GRAM (PRE-DOCKED) 1,000 MG/250 ML BAG IVPB SCH ×2 (03:36→14:53)
[2020-11-30] MEDS: PIPERACILLIN/TAZOB 3.375 GM 3.375 GM in DEXTROSE 5%-WATER - 50 ML IVPB SCH ×3 (03:53→18:34)
[2020-11-30 07:23] LABS: BASO % 0.5 % (0-2.0); EOS % 2.5 % (0-4.5); HEMATOCRIT 32.8 % (32.4-45.2); LYMPH % 19.7 % (8-40); MCH 27.9 pg (25.7-33.7); MCHC 33.6 g/dl (32.0-36.0); MEAN PLT VOLUME 6.9 fl (7.5-11.1); MONO % 10.3 % (3.8-10.2); PLATELET COUNT 440 10^3/uL (134-434); RBC 3.96 M/mm3 (3.60-5.2); RDW 13.2 % (11.6-15.6); WHITE BLOOD COUNT 8.3 K/mm3 (4.0-10.0)
[2020-11-30 07:52] LABS: ALBUMIN 1.9 g/dl (3.4-5.0); CALCIUM 8.7 mg/dL (8.5-10.1); MAGNESIUM 2.3 mg/dL (1.8-2.4)
[2020-11-30 07:53] LABS: BLOOD UREA NITROGEN 8.8 mg/dL (7-18)
[2020-11-30 07:56] LABS: CREATININE 0.5 mg/dL (0.55-1.3)
[2020-11-30 07:57] LABS: BILIRUBIN,TOTAL 0.5 mg/dL (0.2-1); TOT PROT 6.4 g/dl (6.4-8.2)
[2020-11-30 09:26] LABS: ANISOCYTOSIS 0; HELMET CELLS 0; HOWELL-JOLLY BODIES 0; MACROCYTOSIS 0; OVALOCYTE 0; PLATELET ESTIMATE NORMAL; ROULEAU 0; SICKELED CELLS 0; TARGET CELLS 0; TEAR DROP CELLS 0; TOXIC GRANULATION 0
[2020-11-30] MEDS: LIDOCAINE 5% TOPICAL PATCH TP SCH (09:35)
[2020-11-30] MEDS: ENOXAPARIN NA (PORCINE) 80 MG/0.8 ML DISP.SYRIN SQ SCH ×2 (09:36→22:45)
[2020-11-30] MEDS: PANTOPRAZOLE SODIUM 40 MG VIAL IVPUSH SCH (09:36)
[2020-11-30] MEDS ORDERED: SENNOSIDES 8.6MG TABLET (FP) PO PRN (12:25)
[2020-11-30] MEDS: POLYETHYLENE GLYCOL 3350 119 GM BTL PO SCH ×2 (14:48→22:47)
[2020-11-30] MEDS: ALTEPLASE 2 MG VIAL IVPB SCH (15:30)
[2020-11-30 17:10] LABS: BODY FLUID ALBUMIN 2.6 g/dL (Not Estab.)
[2020-11-30] MEDS: traMADol HCL 50 MG TABLET PO PRN (18:39)
[2020-11-30] MEDS: DOCUSATE SODIUM 100 MG CAPSULE (FP) PO SCH (22:47)
[2020-11-30] MEDS: LIDOCAINE PATCH REMOVAL MC SCH ×2 (22:50)
[2020-12-01] MEDS ORDERED: PIPERACILLIN/TAZOBACTAM 3.375 GM VIAL IVPB ONE ×3 (01:00→17:30)
[2020-12-01] MEDS: PIPERACILLIN/TAZOB 3.375 GM 3.375 GM in DEXTROSE 5%-WATER - 50 ML IVPB SCH ×3 (01:39→17:53)
[2020-12-01] MEDS: VANCOMYCIN 1 GRAM (PRE-DOCKED) 1,000 MG/250 ML BAG IVPB SCH ×2 (02:10→15:30)
[2020-12-01 07:08] LABS: BASO % 0.5 % (0-2.0); EOS % 2.2 % (0-4.5); HEMOGLOBIN 11.7 GM/dL (10.7-15.3); LYMPH % 17.8 % (8-40); MCH 27.7 pg (25.7-33.7); MCHC 33.4 g/dl (32.0-36.0); MEAN CELL VOLUME 82.9 fl (80-96); MONO % 10.4 % (3.8-10.2); NEUT % 69.1 % (42.8-82.8); PLATELET COUNT 516 10^3/uL (134-434); RBC 4.22 M/mm3 (3.60-5.2); RDW 13.2 % (11.6-15.6); WHITE BLOOD COUNT 8.7 K/mm3 (4.0-10.0)
[2020-12-01 07:36] LABS: CALCIUM 8.9 mg/dL (8.5-10.1)
[2020-12-01 07:37] LABS: MAGNESIUM 2.3 mg/dL (1.8-2.4)
[2020-12-01 07:40] LABS: CREATININE 0.5 mg/dL (0.55-1.3)
[2020-12-01 07:41] LABS: BILIRUBIN,TOTAL 0.7 mg/dL (0.2-1); TOT PROT 6.8 g/dl (6.4-8.2)
[2020-12-01] MEDS ORDERED: DEXTROSE 5%-WATER - 50 ML IVPB ONE (09:12)
[2020-12-01] MEDS: traMADol HCL 50 MG TABLET PO PRN ×3 (10:17→21:40)
[2020-12-01] MEDS: LIDOCAINE 5% TOPICAL PATCH TP SCH (10:20)
[2020-12-01] MEDS: PANTOPRAZOLE SODIUM 40 MG VIAL IVPUSH SCH (10:20)
[2020-12-01] MEDS: ENOXAPARIN NA (PORCINE) 80 MG/0.8 ML DISP.SYRIN SQ SCH ×2 (10:21→21:29)
[2020-12-01] MEDS: POLYETHYLENE GLYCOL 3350 119 GM BTL PO SCH ×2 (10:22→21:30)
[2020-12-01] MEDS: ALTEPLASE 2 MG VIAL IVPB SCH (12:00)
[2020-12-01] MEDS: DOCUSATE SODIUM 100 MG CAPSULE (FP) PO SCH ×2 (21:29→21:37)
[2020-12-01] MEDS: LIDOCAINE PATCH REMOVAL MC SCH (21:30)
[2020-12-02] MEDS ORDERED: DEXTROSE 5%-WATER - 50 ML IVPB ONE ×3 (00:34→17:06)
[2020-12-02] MEDS ORDERED: PIPERACILLIN/TAZOBACTAM 3.375 GM VIAL IVPB ONE ×3 (00:34→17:06)
[2020-12-02] MEDS: PIPERACILLIN/TAZOB 3.375 GM 3.375 GM in DEXTROSE 5%-WATER - 50 ML IVPB SCH ×3 (01:30→17:52)
[2020-12-02] MEDS: VANCOMYCIN 1 GRAM (PRE-DOCKED) 1,000 MG/250 ML BAG IVPB SCH ×2 (02:01→16:53)
[2020-12-02 08:10] LABS: BASO % 0.9 % (0-2.0); HEMATOCRIT 36.5 % (32.4-45.2); HEMOGLOBIN 11.8 GM/dL (10.7-15.3); LYMPH % 22.6 % (8-40); MCH 27.2 pg (25.7-33.7); MCHC 32.4 g/dl (32.0-36.0); MEAN CELL VOLUME 83.8 fl (80-96); MEAN PLT VOLUME 7.5 fl (7.5-11.1); MONO % 9.5 % (3.8-10.2); PLATELET COUNT 543 10^3/uL (134-434); RBC 4.36 M/mm3 (3.60-5.2); RDW 13.4 % (11.6-15.6); WHITE BLOOD COUNT 8.3 K/mm3 (4.0-10.0)
[2020-12-02 08:36] LABS: CALCIUM 9.1 mg/dL (8.5-10.1); MAGNESIUM 2.3 mg/dL (1.8-2.4)
[2020-12-02 08:40] LABS: CREATININE 0.6 mg/dL (0.55-1.3)
[2020-12-02 08:41] LABS: BILIRUBIN,TOTAL 0.7 mg/dL (0.2-1); TOT PROT 6.7 g/dl (6.4-8.2)
[2020-12-02] MEDS: PANTOPRAZOLE SODIUM 40 MG VIAL IVPUSH SCH (09:04)
[2020-12-02] MEDS: LIDOCAINE 5% TOPICAL PATCH TP SCH (09:05)
[2020-12-02] MEDS: ENOXAPARIN NA (PORCINE) 80 MG/0.8 ML DISP.SYRIN SQ SCH ×2 (09:05→21:05)
[2020-12-02] MEDS: POLYETHYLENE GLYCOL 3350 119 GM BTL PO SCH ×2 (10:00→21:05)
[2020-12-02 11:03] LABS: ANISOCYTOSIS 1+; MACROCYTOSIS 0; PLATELET ESTIMATE INCREASED; TOXIC GRANULATION 2+
[2020-12-02] MEDS ORDERED: ALTEPLASE 2 MG VIAL IVPB ONE ×2 (12:13→12:45)
[2020-12-02] MEDS: traMADol HCL 50 MG TABLET PO PRN ×2 (13:57→20:56)
[2020-12-02] MEDS ORDERED: PT OWN MED DRAWER 7, Y5N ONE (14:50)
[2020-12-02] MEDS: DOCUSATE SODIUM 100 MG CAPSULE (FP) PO SCH (21:05)
[2020-12-02] MEDS: LIDOCAINE PATCH REMOVAL MC SCH (21:05)
[2020-12-03] MEDS ORDERED: PIPERACILLIN/TAZOBACTAM 3.375 GM VIAL IVPB ONE ×3 (01:02→16:36)
[2020-12-03] MEDS ORDERED: DEXTROSE 5%-WATER - 50 ML IVPB ONE ×3 (01:02→16:36)
[2020-12-03] MEDS: PIPERACILLIN/TAZOB 3.375 GM 3.375 GM in DEXTROSE 5%-WATER - 50 ML IVPB SCH ×3 (02:21→17:27)
[2020-12-03 08:47] LABS: BASO % 0.8 % (0-2.0); EOS % 1.7 % (0-4.5); HEMATOCRIT 37.6 % (32.4-45.2); HEMOGLOBIN 12.5 GM/dL (10.7-15.3); LYMPH % 17.4 % (8-40); MCH 27.4 pg (25.7-33.7); MCHC 33.2 g/dl (32.0-36.0); MEAN CELL VOLUME 82.7 fl (80-96); MEAN PLT VOLUME 7.3 fl (7.5-11.1); MONO % 6.5 % (3.8-10.2); NEUT % 73.6 % (42.8-82.8); PLATELET COUNT 684 10^3/uL (134-434); RBC 4.55 M/mm3 (3.60-5.2); RDW 13.4 % (11.6-15.6); WHITE BLOOD COUNT 8.6 K/mm3 (4.0-10.0)
[2020-12-03 09:04] LABS: BLOOD UREA NITROGEN 10.4 mg/dL (7-18); CALCIUM 9.9 mg/dL (8.5-10.1)
[2020-12-03 09:05] LABS: MAGNESIUM 2.3 mg/dL (1.8-2.4)
[2020-12-03 09:08] LABS: CREATININE 0.5 mg/dL (0.55-1.3)
[2020-12-03 09:09] LABS: BILIRUBIN,TOTAL 0.4 mg/dL (0.2-1); TOT PROT 7.9 g/dl (6.4-8.2)
[2020-12-03 09:11] LABS: ALBUMIN 2.5 g/dl (3.4-5.0)
[2020-12-03] MEDS: POLYETHYLENE GLYCOL 3350 119 GM BTL PO SCH ×2 (09:44→21:09)
[2020-12-03] MEDS: ENOXAPARIN NA (PORCINE) 80 MG/0.8 ML DISP.SYRIN SQ SCH ×2 (09:45→21:15)
[2020-12-03] MEDS: LIDOCAINE 5% TOPICAL PATCH TP SCH (09:46)
[2020-12-03] MEDS: PANTOPRAZOLE SODIUM 40 MG VIAL IVPUSH SCH (09:46)
[2020-12-03] MEDS ORDERED: PT OWN MED DRAWER 7, Y5N ONE (13:26)
[2020-12-03] MEDS: DOCUSATE SODIUM 100 MG CAPSULE (FP) PO SCH (21:08)
[2020-12-03] MEDS: LIDOCAINE PATCH REMOVAL MC SCH (21:08)
[2020-12-03] MEDS: traMADol HCL 50 MG TABLET PO PRN (21:09)
[2020-12-04] MEDS ORDERED: DEXTROSE 5%-WATER - 50 ML IVPB ONE ×3 (00:22→16:26)
[2020-12-04] MEDS ORDERED: PIPERACILLIN/TAZOBACTAM 3.375 GM VIAL IVPB ONE ×3 (00:22→16:26)
[2020-12-04] MEDS: PIPERACILLIN/TAZOB 3.375 GM 3.375 GM in DEXTROSE 5%-WATER - 50 ML IVPB SCH ×3 (02:38→17:07)
[2020-12-04 07:32] LABS: EOS % 2.5 % (0-4.5); HEMATOCRIT 36.4 % (32.4-45.2); HEMOGLOBIN 11.8 GM/dL (10.7-15.3); LYMPH % 28.2 % (8-40); MCH 27.1 pg (25.7-33.7); MCHC 32.3 g/dl (32.0-36.0); MEAN PLT VOLUME 7.5 fl (7.5-11.1); MONO % 8.5 % (3.8-10.2); NEUT % 59.8 % (42.8-82.8); PLATELET COUNT 595 10^3/uL (134-434); RBC 4.34 M/mm3 (3.60-5.2); RDW 13.3 % (11.6-15.6); WHITE BLOOD COUNT 7.5 K/mm3 (4.0-10.0)
[2020-12-04 07:50] LABS: CALCIUM 9.6 mg/dL (8.5-10.1)
[2020-12-04 07:51] LABS: ALBUMIN 2.3 g/dl (3.4-5.0); BLOOD UREA NITROGEN 9.9 mg/dL (7-18); MAGNESIUM 2.5 mg/dL (1.8-2.4)
[2020-12-04 07:54] LABS: CREATININE 0.6 mg/dL (0.55-1.3)
[2020-12-04 07:56] LABS: BILIRUBIN,TOTAL 0.6 mg/dL (0.2-1)
[2020-12-04] MEDS: LIDOCAINE 5% TOPICAL PATCH TP SCH (09:16)
[2020-12-04] MEDS: ENOXAPARIN NA (PORCINE) 80 MG/0.8 ML DISP.SYRIN SQ SCH ×2 (09:16→21:58)
[2020-12-04] MEDS: PANTOPRAZOLE SODIUM 40 MG VIAL IVPUSH SCH (09:16)
[2020-12-04] MEDS: POLYETHYLENE GLYCOL 3350 119 GM BTL PO SCH ×2 (09:17→22:01)
[2020-12-04] MEDS: DOCUSATE SODIUM 100 MG CAPSULE (FP) PO SCH (21:58)
[2020-12-04] MEDS: LIDOCAINE PATCH REMOVAL MC SCH (22:01)
[2020-12-05] MEDS ORDERED: PIPERACILLIN/TAZOBACTAM 3.375 GM VIAL IVPB ONE ×3 (01:05→17:00)
[2020-12-05] MEDS ORDERED: DEXTROSE 5%-WATER - 50 ML IVPB ONE ×3 (01:05→17:01)
[2020-12-05] MEDS: PIPERACILLIN/TAZOB 3.375 GM 3.375 GM in DEXTROSE 5%-WATER - 50 ML IVPB SCH ×3 (02:18→17:28)
[2020-12-05] MEDS ORDERED: traMADol HCL 50 MG TABLET PO PRN (02:18)
[2020-12-05 07:59] LABS: EOS % 2.5 % (0-4.5); HEMATOCRIT 34.3 % (32.4-45.2); HEMOGLOBIN 11.3 GM/dL (10.7-15.3); LYMPH % 31.2 % (8-40); MCH 27.5 pg (25.7-33.7); MCHC 32.9 g/dl (32.0-36.0); MEAN CELL VOLUME 83.4 fl (80-96); MEAN PLT VOLUME 7.4 fl (7.5-11.1); MONO % 8.4 % (3.8-10.2); NEUT % 56.9 % (42.8-82.8); PLATELET COUNT 585 10^3/uL (134-434); RBC 4.12 M/mm3 (3.60-5.2); RDW 13.4 % (11.6-15.6); WHITE BLOOD COUNT 6.8 K/mm3 (4.0-10.0)
[2020-12-05 08:04] LABS: ALBUMIN 2.3 g/dl (3.4-5.0); CALCIUM 9.4 mg/dL (8.5-10.1)
[2020-12-05 08:05] LABS: BLOOD UREA NITROGEN 12.1 mg/dL (7-18); MAGNESIUM 2.4 mg/dL (1.8-2.4)
[2020-12-05 08:08] LABS: CREATININE 0.6 mg/dL (0.55-1.3)
[2020-12-05 08:09] LABS: BILIRUBIN,TOTAL 0.4 mg/dL (0.2-1); TOT PROT 6.9 g/dl (6.4-8.2)
[2020-12-05] MEDS: POLYETHYLENE GLYCOL 3350 119 GM BTL PO SCH ×2 (09:59→21:18)
[2020-12-05] MEDS: PANTOPRAZOLE SODIUM 40 MG VIAL IVPUSH SCH (09:59)
[2020-12-05] MEDS: LIDOCAINE 5% TOPICAL PATCH TP SCH (09:59)
[2020-12-05] MEDS: ENOXAPARIN NA (PORCINE) 80 MG/0.8 ML DISP.SYRIN SQ SCH ×2 (10:37→21:18)
[2020-12-05] MEDS: DOCUSATE SODIUM 100 MG CAPSULE (FP) PO SCH (21:18)
[2020-12-05] MEDS: LIDOCAINE PATCH REMOVAL MC SCH (21:18)
[2020-12-06] MEDS ORDERED: PIPERACILLIN/TAZOBACTAM 3.375 GM VIAL IVPB ONE ×2 (02:04→08:51)
[2020-12-06] MEDS ORDERED: DEXTROSE 5%-WATER - 50 ML IVPB ONE ×2 (02:04→08:51)
[2020-12-06] MEDS: PIPERACILLIN/TAZOB 3.375 GM 3.375 GM in DEXTROSE 5%-WATER - 50 ML IVPB SCH ×2 (02:34→09:55)
[2020-12-06 07:11] LABS: BASO % 1.2 % (0-2.0); EOS % 2.5 % (0-4.5); HEMATOCRIT 34.8 % (32.4-45.2); HEMOGLOBIN 11.4 GM/dL (10.7-15.3); LYMPH % 34.3 % (8-40); MCH 27.3 pg (25.7-33.7); MCHC 32.9 g/dl (32.0-36.0); MEAN CELL VOLUME 83.1 fl (80-96); MEAN PLT VOLUME 7.3 fl (7.5-11.1); MONO % 8.8 % (3.8-10.2); NEUT % 53.2 % (42.8-82.8); PLATELET COUNT 591 10^3/uL (134-434); RBC 4.19 M/mm3 (3.60-5.2); RDW 13.3 % (11.6-15.6); WHITE BLOOD COUNT 6.3 K/mm3 (4.0-10.0)
[2020-12-06 07:49] LABS: ALBUMIN 2.4 g/dl (3.4-5.0); BLOOD UREA NITROGEN 12.9 mg/dL (7-18); MAGNESIUM 2.2 mg/dL (1.8-2.4)
[2020-12-06 07:50] LABS: CALCIUM 9.1 mg/dL (8.5-10.1)
[2020-12-06 07:52] LABS: CREATININE 0.7 mg/dL (0.55-1.3)
[2020-12-06 07:53] LABS: BILIRUBIN,TOTAL 0.7 mg/dL (0.2-1); TOT PROT 7.1 g/dl (6.4-8.2)
[2020-12-06 08:58] VITALS: BP 128/52; PULSE 64; TEMP 98.7
[2020-12-06] MEDS: PANTOPRAZOLE SODIUM 40 MG VIAL IVPUSH SCH (09:55)
[2020-12-06] MEDS: LIDOCAINE 5% TOPICAL PATCH TP SCH (09:55)
[2020-12-06] MEDS: POLYETHYLENE GLYCOL 3350 119 GM BTL PO SCH (09:56)
[2020-12-06] MEDS: ENOXAPARIN NA (PORCINE) 80 MG/0.8 ML DISP.SYRIN SQ SCH (09:56)
[2020-12-06] MEDS ORDERED: APIXABAN 5 MG TABLET PO SCH (22:00)
== END 2020-12-06 16:44 | disposition home health service (06) | DRG 193 ==
LOC: JER 03:43 → JERBED 08:10 → J5S 09:50 → J4W 11-27 12:17
PROVIDERS: ATTEND Nurse Practitioner Family
PROC: 0W9930Z Drainage of Right Pleural Cavity with Drainage Device, Percutaneous Approach (ICD-10-PCS; principal; 2020-11-28)
PROC: 3E0L3GC Introduction of Other Therapeutic Substance into Pleural Cavity, Percutaneous Approach (ICD-10-PCS; 2020-11-30)
PROC: 0WP9X3Z Removal of Infusion Device from Right Pleural Cavity, External Approach (ICD-10-PCS; 2020-12-05)
DX: J18.9 Pneumonia, unspecified organism (principal); J86.9 Pyothorax without fistula; I48.92 Unspecified atrial flutter; J90 Pleural effusion, not elsewhere classified; J98.11 Atelectasis; I31.3 Pericardial effusion (noninflammatory); I10 Essential (primary) hypertension; R00.0 Tachycardia, unspecified; E78.5 Hyperlipidemia, unspecified; F60.3 Borderline personality disorder; R74.01 Elevation of levels of liver transaminase levels; E01.0 Iodine-deficiency related diffuse (endemic) goiter; R73.03 Prediabetes; R91.8 Other nonspecific abnormal finding of lung field; M54.9 Dorsalgia, unspecified; R94.5 Abnormal results of liver function studies; R50.9 Fever, unspecified; K76.0 Fatty (change of) liver, not elsewhere classified
CPT/HCPCS: 32557; 36415; 71045-TC-FY; 71046-TC-FY; 71250-TC; 71275-TC; 74019-TC-FY; 76705-TC; 80048; 80053; 80074; 81003; 82042; 82150; 82248; 82550; 82728; 82803; 82945; 83036; 83605; 83615; 83735; 83880; 83986; 84100; 84157; 84439; 84443; 84478; 84484; 85025; 85027; 85379; 85610; 85730; 86140; 86480; 86704; 86706; 86707; 86708; 86709; 86769; 86803; 87040; 87070; 87075; 87086; 87102; 87116; 87205; 87206; 87210; 87340; 87804; 87807; 87899; 93005; 93010; 93306-TC; 94761; 97116-GP; 97161-GP; 99285-25; C9803; G0480; J0131; Q9967; U0003; U0005